=== PATIENT | male | born 1945 ===

== ENCOUNTER 2023-03-21 14:11 | Outpatient (NON) | payer MEDICARE, SELFPAY | END 2023-03-21 14:12 | disposition home or self-care (01) | LOC: ANHLAB 14:12 | PROVIDERS: Visit Provider Nurse Practitioner | DX: C44.92 Squamous cell carcinoma of skin, unspecified (principal) | CPT/HCPCS: 88305; 88331; 88332 ==

== ENCOUNTER 2023-06-21 07:00 | Outpatient (NON) | payer MEDICARE, SELFPAY | END 2023-06-21 07:01 | disposition home or self-care (01) | LOC: ANHLAB 06-22 12:25 | PROVIDERS: Visit Provider Nurse Practitioner | DX: L82.1 Other seborrheic keratosis (principal) | CPT/HCPCS: 88305 ==